=== PATIENT | female | born 1985 | race Two or more races ===

== ENCOUNTER 2017-02-26 22:19 | Emergency (ER) | payer SELFPAY ==
[~2017-02-26 22:19] MED LIST: AUGMENTIN 875-1 EAC2 PO; AUGMENTIN875 MG PO; BACTRIM DS TABL1 TAB PO; BENTYL20 MG PO; COLACE100 MG PO; COMPAZINE10 M PO; FLEXERIL10 MG PO; IBUPROFEN800 M1 PO; IRON325 M1 PO; MACROBID 100 M100 M1 PO; MACROBID 100 M100 MG PO; MOTRIN800 MG PO; NO HOME MEDS; NORCO 5/325 TAB1 TAB PO; PERCOCET 5/3251 TAB PO; PRENATAL VITAMI1 TAB; PRENATAL1 TAB PO; REGLAN10 MG PO; ZOFRAN4 MG PO
[2017-02-26 23:14] LABS: URINE BILIRUBIN NEGATIVE (NEG); URINE BLOOD LARGE (NEG); URINE GLUCOSE (UA) NEGATIVE (NEG); URINE KETONE NEGATIVE (NEG); URINE LEUKOCYTE ESTERASE POSITIVE (NEG); URINE NITRITE NEGATIVE (NEG); URINE PROTEIN MODERATE (NEG); URINE SPECIFIC GRAVITY 1.025 (1.003-1.030)
[2017-02-26 23:17] LABS: URINE APPEARANCE HAZY; URINE COLOR YELLOW
[2017-02-26 23:26] LABS: URINE BACTERIA 1+; URINE RBC 0-3 /[HPF] (0-5)
[2017-02-26] MEDS ORDERED: MACROBID 100 M100 M1 PO (23:32)
== END 2017-02-26 23:42 ==
LOC: EDMED 22:19
PROVIDERS: Emergency Medicine
DX: N39.0 Urinary tract infection, site not specified (principal); Z90.49 Acquired absence of other specified parts of digestive tract